=== PATIENT | female | born 1960 | race Caucasian/White ===

== ENCOUNTER 2017-03-08 07:15 | Outpatient (CLI) | payer OTHER ==
--- NOTE | 2017-03-09 17:17 | Mammography Report ---
DIGITAL SCREENING MAMMOGRAM: 03/08/2017 CLINICAL INDICATION: A 57-year-old with family history of breast cancer, for screening. COMPARISON: 05/2015, 05/2014. TECHNIQUE: Routine CC and MLO projections were obtained of the breasts. FINDINGS: Parenchymal tissue within both breasts is heterogeneously dense, which may lower the sensi tivity of mammography; however, there are no dominant masses, suspicious microcalcifications, or seco ndary signs of malignancy. In comparison to the previous studies, there are no significant changes. ASSESSMENT: NO MAMMOGRAPHIC EVIDENCE OF MALIGNANCY. NO SIGNIFICANT INTERVAL CHANGES. RECOMMENDATION: Screening mammography is recommended annually. BIRADS category 1 - negative. STANDARD QUALIFYING STATEMENTS 1. This examination was reviewed with the aid of Computed-Aided Detection (CAD). 2. A negative or benign imaging report should not delay biopsy if clinically suspicious findings are present. Consider surgical consultation if warranted. More than 5% of cancers are not identified by i maging. 3. Dense breasts may obscure an underlying neoplasm. JOB #: [id number] EXT JOB #:[id number]
== END 2017-03-08 07:16 | disposition home or self-care (01) ==
LOC: DI 07:15
PROVIDERS: ATTEND Family Medicine
DX: Z12.31 Encounter for screening mammogram for malignant neoplasm of breast (principal); Z80.3 Family history of malignant neoplasm of breast
CPT/HCPCS: 77067

== ENCOUNTER 2017-03-09 08:28 | Outpatient (CLI) | payer OTHER ==
--- NOTE | 2017-03-09 10:04 | XRAY Report ---
THREE-VIEW LEFT SHOULDER: 03/09/2017 CLINICAL INDICATION: Pain. FINDINGS: AP, oblique, scapular Y views of the left shoulder demonstrate mild degenerative changes o f the acromioclavicular joint. There is no evidence of fracture or dislocation. No radiopaque forei gn body is seen in the soft tissues. IMPRESSION: MILD DEGENERATIVE CHANGES OF THE ACROMIOCLAVICULAR JOINT. JOB #: [id number] EXT JOB #:[id number]
== END 2017-03-09 08:29 | disposition home or self-care (01) ==
LOC: DI 08:28
PROVIDERS: ATTEND Nurse Practitioner Family
DX: M19.012 Primary osteoarthritis, left shoulder (principal)

== ENCOUNTER 2017-04-29 10:02 | Outpatient (CLI) | payer OTHER ==
--- NOTE | 2017-04-29 13:31 | MRI Report ---
EXAM: LEFT SHOULDER MRI WITHOUT CONTRAST EXAM DATE: 04/29/2017 11:24 AM. CLINICAL HISTORY: Left shoulder pain. Rotator cuff symptoms. COMPARISON: None. TECHNIQUE: Multiplanar, multisequence T1-weighted and fluid-sensitive sequences of the shoulder witho ut contrast. Other: Left shoulder radiography from 03/09/2017. FINDINGS: Acromioclavicular Region: The acromion is type II. The acromioclavicular joint is unremarkable. The c oracoacromial and coracoclavicular ligaments are intact. Small amount of fluid at the subacromial-sub deltoid bursa. Glenohumeral Region: No subluxation. No effusion or loose bodies. 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 The glenohumeral ligaments and joint capsule are unremarkable. Bone Marrow: Subcortical cyst at the anterior-inferior aspect of the glenoid. No acute fracture or alycia ne lesions. Labrum: Slight T2 hyperintense signal at the posterior superior aspect of the labrum. Probable sublab ral foramen variant at the anterosuperior aspect of the labrum. Linear T2 hyperintense focus at the a nterior-inferior aspect of the labrum suspicious for tear. Musculature/Rotator Cuff: There is an approximately 6 x 6 mm focal partial-thickness bursal surface t ear at the anterior distal aspect of the supraspinatus tendon. The tear involves approximately 50% of the tendon thickness at this location. There is tendinosis of the remaining supraspinatus tendon. Mi ld infraspinatus tendinosis. Teres minor and subscapularis tendons are unremarkable. No edema or fatt y atrophy. Biceps Tendon: Proximal long head biceps tendinosis. Other: The subcutaneous tissues are unremarkable. IMPRESSION: 1. A focal 6 x 6 mm moderate to high grade partial thickness bursal surface tear at the anterior dist al aspect of the supraspinatus tendon. There is also supraspinatus and infraspinatus tendinosis. 2. Proximal long head biceps tendinosis. 3. Slight T2 hyperintense signal at the posterior superior aspect of the labrum which may represent d egeneration or chronic SLAP tear. There are findings suspicious for tear at the anteroinferior aspect of the labrum. 4. Focal grade 3 chondromalacia in subcortical cyst at the anteroinferior aspect of the glenoid. [facility] MUSCULOSKE[facility]IOLOG[facility] SECTION Referring Provider Line: [phone] SITE ID: [id number]
== END 2017-04-29 10:03 | disposition home or self-care (01) ==
LOC: DI 10:02
PROVIDERS: ATTEND Internal Medicine
DX: M75.102 Unspecified rotator cuff tear or rupture of left shoulder, not specified as traumatic (principal); M67.922 Unspecified disorder of synovium and tendon, left upper arm; M94.212 Chondromalacia, left shoulder

== ENCOUNTER 2017-08-17 13:44 | Emergency (ER) | payer OTHER ==
[2017-08-17 13:55] VITALS: BP 109/60
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
== END 2017-08-17 16:32 | disposition home or self-care (01) ==
LOC: ED 13:44
DX: M25.512 Pain in left shoulder (principal); M54.2 Cervicalgia; V49.69XA Unspecified car occupant injured in collision with other motor vehicles in traffic accident, initial encounter; Z98.890 Other specified postprocedural states
CPT/HCPCS: 99283

== ENCOUNTER 2017-10-13 07:29 | Day surgery (SDC) | payer OTHER ==
[~2017-10-13 07:29] MED LIST: BRIMONIDINE 0.2% OPHTH DROPS 5 ML ONE; BSS/LIDOCAINE/EPINEPHRINE 1 ML SYRINGE ONE; CYCLOPENTOLATE 1% OPHTH DROPS 2 ML ONE; KETOROLAC 0.45% OPHTH DROPS ONE; PHENYLEPHRINE 2.5% OPHTH 2 ML DROPS ONE; PROPARACAINE 0.5% OPHTH DROPS 15 ML ONE; TIMOLOL 0.5% OPHTH DROPS ONE
[2017-10-13] MEDS ORDERED: LACTATED RINGERS 1,000 ML IV ONE (07:34)
[2017-10-13] MEDS ORDERED: CYCLOPENTOLATE 1% OPHTH DROPS 2 ML RIGHTEYE ONE (07:45)
[2017-10-13] MEDS ORDERED: PHENYLEPHRINE 2.5% OPHTH 2 ML DROPS RIGHTEYE ONE (07:45)
[2017-10-13] MEDS ORDERED: PROPARACAINE 0.5% OPHTH DROPS 15 ML RIGHTEYE ONE ×2 (07:45→08:48)
[2017-10-13] MEDS ORDERED: KETOROLAC 0.45% OPHTH DROPS RIGHTEYE ONE (07:45)
[2017-10-13] MEDS ORDERED: fentaNYL 100 MCG/2 ML VIAL IVP ONE (08:45)
[2017-10-13] MEDS ORDERED: MIDAZOLAM 2 MG/2 ML VIAL IVP ONE (08:45)
[2017-10-13] MEDS ORDERED: BRIMONIDINE 0.2% OPHTH DROPS 5 ML OPTH ONE (08:46)
[2017-10-13] MEDS ORDERED: EPINEPHrine 1 MG/ML AMP IR ONE (08:46)
[2017-10-13] MEDS ORDERED: CHONDR SULF/HYALURONATE SYRINGE IO ONE (08:47)
[2017-10-13] MEDS ORDERED: TIMOLOL 0.5% OPHTH DROPS OPTH ONE (08:47)
[2017-10-13] MEDS ORDERED: BSS/LIDOCAINE/EPINEPHRINE 1 ML SYRINGE IO ONE ×2 (08:47)
[2017-10-13] MEDS ORDERED: TRIAMCIN/MOXIFLOX/VANCO 1 ML VIAL IO ONE (08:48)
[2017-10-13 09:10] VITALS: BP 122/80
[2017-10-13] MEDS ORDERED: KETOROLAC 15 MG/ML VIAL ONE (09:16)
--- NOTE | 2017-10-13 09:34 | OPERATIVE REPORT ---
DATE OF SERVICE: 10/13/2017 Physician: Brock Tolbert MD PREOPERATIVE DIAGNOSIS: Visually significant cataract, right eye. Cataract surgery was performed on the left eye on 02/27/2015. POSTOPERATIVE DIAGNOSIS: Visually significant cataract, right eye. Cataract surgery was performed on the left eye on 02/27/2015. NAME OF PROCEDURE: Phacoemulsification with posterior chamber intraocular lens implant, right eye. SURGEON: Brock Tolbert MD ANESTHESIA: Monitored anesthesia care. COMPLICATIONS: None. OPERATIVE INDICATIONS: This is a 57-year-old woman with progressive vision loss in the right eye due to 1 to 2+ nuclear sclerotic, 1 to 2+ cortical and 2+ posterior subcapsular cataract. Best corrected visual acuity was 20/15 with glare to 20/80 in the right eye. INDICATIONS FOR SURGERY: Overall decrease in vision, difficulty seeing words on the computer screen, difficulty reading; difficulty seeing words, closed caption, or game scores on TV; difficulty seeing street signs, difficulty driving in low light or at night, difficulty driving at night because of headlights from other vehicles and difficulty with glare or bright lights in any situation. She was consented at length concerning risks and benefits of cataract surgery, after which she expressed a desire to proceed with surgery. OPERATIVE PROCEDURE: The patient was taken into OR #3 and placed under monitored anesthesia care. A surgical timeout was conducted confirming correct patient, correct procedure, and correct surgical site. She was given topical anesthesia, and then prepped and draped in the usual sterile fashion. The eye was entered at the 12 and 9 o'clock positions. Intracameral Shugarcaine was injected into the anterior chamber, followed by Viscoat. A continuous-tear curvilinear capsulorrhexis was performed. The nucleus was hydrodissected and phacoemulsified. The cortex was evacuated using automated infusion and aspiration. Provisc was injected in the capsular bag and a 19.0 diopter intraocular lens was inserted into the bag. Approximately 0.7 mL of a mixture of triamcinolone and moxifloxacin was injected subconjunctivally in the superior quadrant for infection and inflammation prophylaxis. I and A was used to evacuate the viscoelastic material. The eye was inflated to physiologic pressure using a balanced salt solution and found to be watertight. The patient was taken from the operating room in good condition and given postop instructions. TD: 10/13/2017 09:33
== END 2017-10-13 07:30 | disposition home or self-care (01) ==
LOC: SDS 07:29
PROVIDERS: ATTEND Ophthalmology
PROC: 08RJ3JZ Replacement of Right Lens with Synthetic Substitute, Percutaneous Approach (ICD-10-PCS; principal; 2017-10-13 08:30)
DX: H25.811 Combined forms of age-related cataract, right eye (principal); F32.9 Major depressive disorder, single episode, unspecified; Z79.82 Long term (current) use of aspirin
CPT/HCPCS: 66984; A9270; J3490; J7120; V2632

== ENCOUNTER 2018-01-25 07:36 | Outpatient (CLI) | payer OTHER ==
[2018-01-25 08:21] LABS: CHOL/HDL RATIO 7.1 (<4.4); CHOLESTEROL 348 mg/dL; HDL CHOLESTEROL 49 mg/dL; LDL CHOLESTEROL,CALCULATED 274 mg/dL; LDL/HDL RATIO 5.6 (<4.4); VLDL CHOLESTEROL 25 mg/dL
[2018-01-25 09:19] LABS: HB2 TOTAL 13.4 g/dL; HEMOGLOBIN A1C 0.55 g/dL; HEMOGLOBIN A1C % 5.9 % (4.6-6.2)
== END 2018-01-25 07:37 | disposition home or self-care (01) ==
LOC: LAB 07:36
PROVIDERS: ATTEND Internal Medicine
DX: E78.5 Hyperlipidemia, unspecified (principal); Z13.6 Encounter for screening for cardiovascular disorders
CPT/HCPCS: 36415; 80061; 83036; 83721

== ENCOUNTER 2018-05-02 07:34 | Outpatient (CLI) | payer OTHER ==
[2018-05-02 08:33] LABS: HB2 TOTAL 14.3 g/dL; HEMOGLOBIN A1C 0.58 g/dL; HEMOGLOBIN A1C % 5.9 % (4.6-6.2)
[2018-05-02 08:48] LABS: CHOL/HDL RATIO 4.3 (<4.4); CHOLESTEROL 208 mg/dL; HDL CHOLESTEROL 48 mg/dL; LDL CHOLESTEROL,CALCULATED 147 mg/dL; LDL/HDL RATIO 3.1 (<4.4); VLDL CHOLESTEROL 13 mg/dL
== END 2018-05-02 07:35 | disposition home or self-care (01) ==
LOC: LAB 07:34
PROVIDERS: ATTEND Internal Medicine
DX: E88.81 Metabolic syndrome and other insulin resistance (principal); R73.01 Impaired fasting glucose
CPT/HCPCS: 36415; 80061; 83036; 83721